=== PATIENT | male | born 2000 | race Caucasian/White ===

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

== ENCOUNTER 2022-04-24 05:12 | Emergency (ER) | payer OTHER ==
[~2022-04-24] VITALS: Ht 185.4 cm; Wt 77.1 kg
[~2022-04-24 05:12] MED LIST changes: +ADMELOG SO100 UNIT/2; +INSULANI; +LOPE2C PO; +ONDA4ODT MM
[2022-04-24 07:01] LABS: Albumin, Blood 3.7 g/dL (3.4-5.0); Albumin/Globulin Ratio 1.2 (0.8-1.8); Bilirubin, Total 2.1 mg/dL (0.1-1.0); Bun/Creatinine Ratio 19.3 (12.0-20.0); Calcium, Blood 8.7 mg/dL (8.5-10.1); Creatinine, Blood 0.73 mg/dL (0.60-1.20); Globulin, Blood 3.2 g/dL (2.2-4.0); Potassium, Blood 3.3 mmol/L (3.5-5.5); Total Protein, Blood 6.9 g/dL (6.4-8.2)
[2022-04-24 07:02] LABS: BASOPHILS ABSOLUTE AUTO 0.06 K/mm3 (0.00-0.23); BASOPHILS PERCENT AUTO 1 % (0-2); EOSINOPHILS ABSOLUTE AUTO 0.03 K/mm3 (0.00-0.68); EOSINOPHILS PERCENT AUTO 0 % (0-6); Hematocrit 41.1 % (37.0-53.0); Hemoglobin 15.4 g/dL (13.5-17.5); IMMATURE GRAN ABSOLUTE AUTO 0.03 K/mm3 (0.00-0.10); IMMATURE GRAN PERCENT AUTO 0 % (0-1); LYMPHOCYTES ABSOLUTE AUTO 1.15 K/mm3 (0.84-5.20); LYMPHOCYTES PERCENT AUTO 9 % (21-46); MONOCYTES ABSOLUTE AUTO 0.67 K/mm3 (0.16-1.47); MONOCYTES PERCENT AUTO 5 % (4-13); Mean Corpuscular HGB 31.9 pg (26.0-34.0); Mean Corpuscular HGB Conc 37.5 g/dL (31.5-36.5); Mean Corpuscular Volume 85 fL (80-100); Mean Platelet Volume 9.3 fL (9.1-12.4); NEUTROPHILS ABSOLUTE AUTO 11.02 K/mm3 (1.96-9.15); NEUTROPHILS PERCENT AUTO 85 % (41-73); Platelet Count 249 K/mm3 (150-400); RDW Coefficient Variation 11.1 % (11.7-14.2); RDW Standard Deviation 34.6 fL (35.1-46.3); Red Blood Cell Count 4.83 M/mm3 (4.30-5.90); White Blood Cell Count 12.96 K/mm3 (4.00-11.30)
[2022-04-24] MEDS ORDERED: PROC5 PO (09:56)
== END 2022-04-24 10:27 | disposition home or self-care (01) ==
LOC: ER 05:12
PROVIDERS: Emergency Medicine
DX: R10.84 Generalized abdominal pain (principal); R11.2 Nausea with vomiting, unspecified; E10.9 Type 1 diabetes mellitus without complications; Z79.4 Long term (current) use of insulin; Z79.899 Other long term (current) drug therapy
CPT/HCPCS: 74177; 80053; 82947; 83690; 85025; J1630; J1885; J2405; J7120; Q9967

== ENCOUNTER 2023-01-16 05:44 | Inpatient (IN) | payer OTHER ==
[2023-01-16] VITALS (16 sets, daily range): BP systolic 106–148; BP diastolic 57–93
[~2023-01-16] VITALS: Ht 182.9 cm; Wt 73.8 kg
[~2023-01-16 05:44] MED LIST changes: +HUMALOG KW100 UNIT/1 SQ; +HUMALOG100 UNIT/1 SC; -INSULANI; +INSULANI SC; +PROC5 PO
[2023-01-16 06:02] LABS: BASOPHILS PERCENT AUTO 1 % (0-2); EOSINOPHILS PERCENT AUTO 0 % (0-6); Hematocrit 44.1 % (37.0-53.0); IMMATURE GRAN ABSOLUTE AUTO 0.13 K/mm3 (0.00-0.10); IMMATURE GRAN PERCENT AUTO 1 % (0-1); LYMPHOCYTES ABSOLUTE AUTO 0.91 K/mm3 (0.84-5.20); LYMPHOCYTES PERCENT AUTO 5 % (21-46); MONOCYTES ABSOLUTE AUTO 0.61 K/mm3 (0.16-1.47); MONOCYTES PERCENT AUTO 3 % (4-13); Mean Corpuscular HGB 31.7 pg (26.0-34.0); Mean Corpuscular HGB Conc 36.3 g/dL (31.5-36.5); Mean Corpuscular Volume 88 fL (80-100); Mean Platelet Volume 9.1 fL (9.1-12.4); NEUTROPHILS ABSOLUTE AUTO 16.17 K/mm3 (1.96-9.15); NEUTROPHILS PERCENT AUTO 90 % (41-73); Platelet Count 376 K/mm3 (150-400); RDW Coefficient Variation 11.8 % (11.7-14.2); RDW Standard Deviation 37.9 fL (35.1-46.3); Red Blood Cell Count 5.04 M/mm3 (4.30-5.90); White Blood Cell Count 17.92 K/mm3 (4.00-11.30)
[2023-01-16 06:15] LABS: Base Excess Venous -14.9 mmol/L; Bicarbonate Venous 14.2 mmol/L (24.0-30.0); PCO2 Venous 36.2 mmHg (38-42)
[2023-01-16 06:16] LABS: pH Blood Venous 7.18 (7.34-7.37)
[2023-01-16 06:28] LABS: Albumin, Blood 3.7 g/dL (3.4-5.0); Albumin/Globulin Ratio 0.9 (0.8-1.8); Bilirubin, Total 1.3 mg/dL (0.1-1.0); Calcium, Blood 9.6 mg/dL (8.5-10.1); Creatinine, Blood 0.75 mg/dL (0.60-1.20); Globulin, Blood 4.3 g/dL (2.2-4.0); Potassium, Blood 4.8 mmol/L (3.5-5.5)
[2023-01-16 07:32] LABS: Source, Urine Clean Catch
[2023-01-16 07:53] LABS: Bilirubin, Urine Neg (Neg); Blood, Urine 2+ (Neg); Glucose Qualitative, Urine 4+ (Neg); Ketones, Urine 4+ (Neg); Leukocyte Esterase, Urine Neg (Neg); Nitrite, Urine Neg (Neg); Protein, Urine 3+ (Neg); Specific Gravity, Urine 1.025 (1.003-1.022); Urobilinogen, Urine NORM (Normal)
[2023-01-16 08:22] LABS: Appearance, Urine Hazy (Clear); Color, Urine Yellow (P-Yellow)
[2023-01-16 08:29] LABS: Red Blood Cells, Urine 0-2 /hpf (0-2); White Blood Cells, Urine 0-2 /hpf (0-5)
[2023-01-16 08:30] LABS: Squamous Epithelial Cells Not Seen /hpf (Few)
[2023-01-16 08:31] LABS: Bacteria Mod /hpf; Mucus Light (0-Heavy)
[2023-01-16 09:30] LABS: Bun/Creatinine Ratio 20.8 (12.0-20.0); Calcium, Blood 8.9 mg/dL (8.5-10.1); Creatinine, Blood 0.72 mg/dL (0.60-1.20); Potassium, Blood 3.9 mmol/L (3.5-5.5)
[2023-01-16 12:00] LABS: Bun/Creatinine Ratio 18.5 (12.0-20.0); Creatinine, Blood 0.7 mg/dL (0.60-1.20); Potassium, Blood 3.9 mmol/L (3.5-5.5)
--- NOTE | 2023-01-16 12:07 | NUR ---
REASSESSMENT PT HAS BEEN RESTING IN BED SINCE ADMIT. INSULIN GTT INFUSING, NAUSEA IMPROVING AND PT TOLERATING ICE CHIPS. LUNGS ARE CLEAR, RA. SR, BP STABLE. PT'S SO AT THE BEDSIDE. CONTINUING TO MONITOR.
[2023-01-16 16:51] LABS: Bun/Creatinine Ratio 15.9 (12.0-20.0); Calcium, Blood 9.1 mg/dL (8.5-10.1); Creatinine, Blood 0.69 mg/dL (0.60-1.20); Potassium, Blood 3.5 mmol/L (3.5-5.5)
--- NOTE | 2023-01-16 17:13 | NUR ---
SHIFT SUMMARY PT'S LABS CORRECTED, HIS NAUSEA IMPROVED AND HE WAS TOLERATING ICE CHIPS SO DR. NUR ORDERED LONG ACTING INSULIN FOR PT. THAT WAS GIVEN AND GTT STOPPED 90 MINUTES LATER. PT GOT UP AND TOOK A SHOWER. HE IS HAVING ABDOMINAL PAIN AND A LOT OF THROAT PAIN FROM VOMITING. TORADOL GIVEN. PT'S SO AND PARENTS AT THE BEDSIDE. CONTINUING TO MONITOR.
--- NOTE | 2023-01-16 21:09 | NUR ---
ASSUMED CARE AT 1900 PATIENT IS ALERT AND ORIENTED X4. 02 SATS 98% ON RA, DENIES SOB. HR SR 80, BP STABLE, PATIENT DENIES CP/PRESSURE. MEDICATED FOR NAUSEA, AND SORE THROAT. PATIENT STATES HE IS UNABLE TO EAT, TEACHING PROVIDED ON THE NEED FOR FOOD, PATIENT STILL REFUSING FOOD. TOLERATING SOME PO WATER INTAKE. INDEPENDENT IN ROOM. CALL LIGHT IN REACH. OFFERED SHOWER AND PATIENT REFUSED AT THIS TIME.
[2023-01-17] VITALS (19 sets, daily range): BP systolic 109–159; BP diastolic 57–93
[2023-01-17 05:33] LABS: BASOPHILS ABSOLUTE AUTO 0.03 K/mm3 (0.00-0.23); BASOPHILS PERCENT AUTO 0 % (0-2); EOSINOPHILS ABSOLUTE AUTO 0.03 K/mm3 (0.00-0.68); EOSINOPHILS PERCENT AUTO 0 % (0-6); Hematocrit 38.4 % (37.0-53.0); Hemoglobin 13.9 g/dL (13.5-17.5); IMMATURE GRAN ABSOLUTE AUTO 0.09 K/mm3 (0.00-0.10); IMMATURE GRAN PERCENT AUTO 1 % (0-1); LYMPHOCYTES ABSOLUTE AUTO 1.37 K/mm3 (0.84-5.20); LYMPHOCYTES PERCENT AUTO 9 % (21-46); MONOCYTES ABSOLUTE AUTO 1.17 K/mm3 (0.16-1.47); MONOCYTES PERCENT AUTO 7 % (4-13); Mean Corpuscular HGB Conc 36.2 g/dL (31.5-36.5); Mean Corpuscular Volume 88 fL (80-100); Mean Platelet Volume 9.2 fL (9.1-12.4); NEUTROPHILS ABSOLUTE AUTO 13.48 K/mm3 (1.96-9.15); NEUTROPHILS PERCENT AUTO 83 % (41-73); Platelet Count 264 K/mm3 (150-400); RDW Coefficient Variation 11.8 % (11.7-14.2); RDW Standard Deviation 38.3 fL (35.1-46.3); Red Blood Cell Count 4.35 M/mm3 (4.30-5.90); White Blood Cell Count 16.17 K/mm3 (4.00-11.30)
[2023-01-17 06:08] LABS: Bun/Creatinine Ratio 12.7 (12.0-20.0); Calcium, Blood 8.6 mg/dL (8.5-10.1); Creatinine, Blood 0.71 mg/dL (0.60-1.20); Magnesium, Blood 1.6 mg/dL (1.6-2.4); Potassium, Blood 3.6 mmol/L (3.5-5.5)
--- NOTE | 2023-01-17 06:15 | NUR ---
SHIFT SUMMARY PATIENT IS ALERT AND ORIENTED X4. 02 SATS >95% ON RA. DENIES SOB. HR SR 99, BP STABLE. MEDICATED FOR NAUSEA SEVERAL TIMES THROUGH THE NIGHT, PATIENT STILL UNABLE TO EACH. MEDICATED WITH LONG ACTING INSULIN DUE TO GLUCOSE INCREASING THROUGH THE NIGHT AND FLUIDS CONTINUED. PATIENT STATES HIS THROAT IS STILL SORE. PATIENT SHOWERED LAST NIGHT, LINEN CHANGED. CALL LIGHT IN REACH
--- NOTE | 2023-01-17 11:58 | NUR ---
REASSESSMENT PT STATES THAT HIS NAUSEA IS A LITTLE BETTER CURRENTLY, BUT STILL DOESN'T WANT TO TRY AND EAT ANYTHING YET. HE GOT UP AND TOOK A SHOWER. RECEIVED ODT ZOFRAN AND IV REGLAN THIS MORNING. LUNGS REMAIN CLEAR, RA, SR, BP STABLE. CONTINUING TO MONITOR.
--- NOTE | 2023-01-17 12:56 | NUR ---
TRANSFER PT TRANSFERRED TO [facility] 8 VIA . REPORT GIVEN TO LANA TRACEY. ALL BELONGINGS TRANSFERRED WITH PT. PT TOLERATED WELL.
--- NOTE | 2023-01-17 16:52 | NUR ---
SHIFT SUMMARY PT SPENT THE MAJORITY OF THE DAY RESTING IN BED. HIS NAUSEA HAS BEEN BETTER THIS AFTERNOON, BUT HE HAS STILL ONLY ATE HALF A BOWL OF TOMATO SOUP. DR. NUR NOTIFIED AND DECIDED TO KEEP HIM ANOTHER NIGHT, BUT MADE HIM MED, NO TELE. LUNGS REMAIN CLEAR, RA, SR, BP STABLE. VOIDING INDEPENDENTLY, AMBULATED TO THE SHOWER THIS MORNING. SO SPENT THE AFTERNOON AT THE BEDSIDE. CONTINUING TO MONITOR.
--- NOTE | 2023-01-17 20:30 | NUR ---
ASSUMPTION OF CARE AT START OF SHIFT, PATIENT CALM, A/0 X4. ROOM AIR. LUNGS CTA. VITAL SIGNS STABLE. PATIENT DENIES NAUSEA, BUT CONTINUES TO REPORT DECREASED APPETITE. TOLERATING PO FLUIDS, BUT MOSTLY UNITERESTED IN FOOD THIS EVENING BESIDES SOME BITES OF APPLESAUCE AND YOGURT. CBG 108. MEDICAL STATUS. CALL LIGHT WITHIN REACH. CARES ONGOING.
[2023-01-18 03:21] LABS: BASOPHILS ABSOLUTE AUTO 0.04 K/mm3 (0.00-0.23); BASOPHILS PERCENT AUTO 0 % (0-2); EOSINOPHILS ABSOLUTE AUTO 0.14 K/mm3 (0.00-0.68); EOSINOPHILS PERCENT AUTO 1 % (0-6); Hematocrit 38.4 % (37.0-53.0); IMMATURE GRAN ABSOLUTE AUTO 0.05 K/mm3 (0.00-0.10); IMMATURE GRAN PERCENT AUTO 0 % (0-1); LYMPHOCYTES ABSOLUTE AUTO 2.26 K/mm3 (0.84-5.20); LYMPHOCYTES PERCENT AUTO 17 % (21-46); MONOCYTES ABSOLUTE AUTO 1.26 K/mm3 (0.16-1.47); MONOCYTES PERCENT AUTO 10 % (4-13); Mean Corpuscular HGB 31.8 pg (26.0-34.0); Mean Corpuscular HGB Conc 36.5 g/dL (31.5-36.5); Mean Corpuscular Volume 87 fL (80-100); Mean Platelet Volume 8.7 fL (9.1-12.4); NEUTROPHILS ABSOLUTE AUTO 9.57 K/mm3 (1.96-9.15); NEUTROPHILS PERCENT AUTO 72 % (41-73); Platelet Count 232 K/mm3 (150-400); RDW Coefficient Variation 11.7 % (11.7-14.2); RDW Standard Deviation 37.7 fL (35.1-46.3); White Blood Cell Count 13.32 K/mm3 (4.00-11.30)
[2023-01-18 03:25] VITALS: BP 138/80
[2023-01-18 03:37] LABS: Albumin, Blood 2.9 g/dL (3.4-5.0); Anion Gap 4 mmol/L (6-16); Blood Urea Nitrogen 6 mg/dL (8-24); Bun/Creatinine Ratio 8.9 (12.0-20.0); CO2, Blood 30 mmol/L (21-32); Calcium, Blood 8.6 mg/dL (8.5-10.1); Chloride, Blood 105 mmol/L (98-108); Creatinine, Blood 0.67 mg/dL (0.60-1.20); Glomerular Filtration Rate 135 (60-); Glucose, Blood 75 mg/dL (70-99); Magnesium, Blood 1.5 mg/dL (1.6-2.4); Phosphorus, Blood 2.6 mg/dL (2.5-4.9); Sodium, Blood 139 mmol/L (136-145)
--- NOTE | 2023-01-18 05:49 | NUR ---
SHIFT SUMMARY OVERNIGHT, PATIENT REMAINED A/0 X4. ROOM AIR. LUNGS CTA. VSS. DENIES NAUSEA, BUT STILL UNWILLING TO EAT FOOD FOR MOST OF THE NIGHT. CBGS DOWNTRENDING TO 70S AROUND 0330; PATIENT ABLE TO EAT PART OF SANDWICH WELL DRINK APPLEJUICE. CBG IMPROVED ON RECHECK. TOLERATED PO INTAKE W/O N/V. MEDICAL STATUS. CALL LIGHT WITHIN REACH. CARE ONGOING.
[2023-01-18 07:39] VITALS: BP 145/75
--- NOTE | 2023-01-18 09:00 | NUR ---
ASSUMED CARE / DR NUR: REPORT RECEIVED FROM LANA MATAMOROS. ASSUMED CARE OF THIS PT AT APPROX 0700. ON ASSESSMENT, THE PT IS AWAKE, A&O. HE IS PLEASANT & COOPERATIVE W/ CARE. PT ON RA W/ O2 SATS 99%. PULSES REGULAR/ STRONG, NO TELE. PT HAS NO C/O NAUSEA OR ABD PAIN, STS HAVING A POOR APPETITE & LITTLE INTEREST IN FOOD OPTIONS OFFERED. VOIDS W/O DIFFICULTY USING URINAL. SKIN CONDITION OVERALL INTACT, PT REPOSITIONS SELF FOR COMFORT & COMPLETES ADLs INDEPENDENTLY IN ROOM. DR NUR AT BEDSIDE TO EVAL PT THIS AM. ELECTROLYTE REPLETION INFUSING ORDERED. SHE STS HE WILL BE ABLE TO D/C HOME AT APPROX 1200, ONCE INFUSIONS COMPLETED. INSULIN GLARGINE DOSE DECREASED TO 38 UNITS THIS AM, PER PT REQUEST. ORDER UPDATED, NO OTHER CHANGES AT THIS TIME. WILL CONTINUE TO MONITOR & UPDATE NEEDED.
[2023-01-18] MEDS ORDERED: MAGNESIUM OXID400 M1 PO (10:53)
[2023-01-18] MEDS ORDERED: ONDA4ODT MM (10:54)
[2023-01-18] MEDS ORDERED: PHOSPHO-TRIN K500 MG PO (10:55)
[2023-01-18] MEDS ORDERED: OMEP20ER PO (10:56)
--- NOTE | 2023-01-18 12:42 | NUR ---
DISCHARGE TO HOME: EDUCATION HAS BEEN COMPLETED TO BOTH PT & THE PT's FATHER, WHO WILL BE TRANSPORTING HIM HOME TODAY. PIVs REMOVED & THE PT HAS GATHERED ALL OF HIS BELONGINGS. HE WOULD PREFER TO WALK OUT OF THE HOSPITAL & REFUSES WC TRANSPORT OUTSIDE. HE DENIES QUESTIONS & VERBALIZES UNDERSTANDING OF D/C INSTRUCTIONS PROVIDED. THE PT HAS AMBULATED OUT OF THE UNIT AT APPROX 1245.
== END 2023-01-18 12:30 | disposition home or self-care (01) | DRG 638 ==
LOC: ER 05:44 → ICUW 05:45 → ER 07:44 → ICUW 08:46
PROVIDERS: Emergency Medicine; ADMIT Internal Medicine
DX: E10.10 Type 1 diabetes mellitus with ketoacidosis without coma (principal); R65.10 Systemic inflammatory response syndrome (SIRS) of non-infectious origin without acute organ dysfunction; F17.210 Nicotine dependence, cigarettes, uncomplicated; E86.0 Dehydration; R74.01 Elevation of levels of liver transaminase levels; J02.9 Acute pharyngitis, unspecified; E83.42 Hypomagnesemia; K21.9 Gastro-esophageal reflux disease without esophagitis; E83.39 Other disorders of phosphorus metabolism; F12.10 Cannabis abuse, uncomplicated; E87.6 Hypokalemia; Z79.4 Long term (current) use of insulin; Z98.890 Other specified postprocedural states
CPT/HCPCS: 36415; 80048; 80053; 80069; 81001; 82803; 82947; 83036; 83735; 85025; 87086; 93005; 93010; 96361; 96374; 99285-25; A9270; J1815; J1885; J2405; J2765; J3475; J7030; J7042; J7060